=== PATIENT | male | born 1990 | race African-American/Black ===

== ENCOUNTER 2023-10-27 07:28 | Outpatient (AMB) | payer BC, MEDICAID, SELFPAY ==
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
[2023-10-27 07:42] VITALS: BP 122/70; PULSE 76; RESP 16; O2SAT 97; BMI 29.6
== END 2023-10-27 08:09 | disposition home or self-care (01) ==
PROVIDERS: PCP Physician Assistant; Visit Provider Psychiatry & Neurology Neurology
DX: R06.83 Snoring (principal); G47.10 Hypersomnia, unspecified
CPT/HCPCS: 99203

== ENCOUNTER → 2023-10-27 07:28 | Outpatient (BNVA) | payer BC, MEDICAID, SELFPAY | PROVIDERS: PCP Physician Assistant; Visit Provider Psychiatry & Neurology Neurology ==

== ENCOUNTER → 2023-12-07 10:23 | Outpatient (REF) | payer BC, MEDICAID, SELFPAY | LOC: HO.SL 10:23 | PROVIDERS: PCP Physician Assistant; Visit Provider Psychiatry & Neurology Neurology | DX: G47.33 Obstructive sleep apnea (adult) (pediatric) (principal); R06.83 Snoring; G47.10 Hypersomnia, unspecified | CPT/HCPCS: 95806 ==